=== PATIENT | female | born 1965 | race Caucasian/White ===

== ENCOUNTER 2019-10-15 11:04 | Inpatient (IN) | payer SELFPAY ==
[2019-10-15] VITALS (10 sets, daily range): BP systolic 89–117; BP diastolic 40–68
[~2019-10-15] VITALS: Ht 167.6 cm; Wt 74.5 kg
[~2019-10-15 11:04] MED LIST: calcium chloride 100 MG/1 ML inj IV ONE; dextrose 50%-water 50ml dispensing syringe IV ONE; etomidate 2mg/ml inj. ONE; rocuronium 10mg/ml inj IV ONE; sod chloride 0.9% 10ml flush syringe IV ONE; sodium bicarbonate (8.4%) 1 mEq/ml syringe ONE
[2019-10-15] MEDS ORDERED: succinylcholine 20mg/ml inj IV ONE (11:08)
[2019-10-15] MEDS ORDERED: insulin regular, human 10 units/0.1 ml syringe IV ONE (11:10)
--- NOTE | 2019-10-15 11:10 | NUR ---
Poison control was called by RN. Posion control recommended activated charcoal but didn't recommend lavage. For Potassium OVD EKG EVERY 2 HRS, POT. LEVEL, AND VS MONITORING WAS SUGGESTED. Rec. For morphine OVD VS MONITORING, NARCAN EVERY 2MIN(UP TO 20 MG), LABS, EKG was suggested. Labs recomended were: blood alcohol level, potassium, tylenol, asprin, urine drug screen, Liver function.
[2019-10-15] MEDS ORDERED: insulin regular, human U-100 3ml vial - multi-dose IV ONE ×2 (11:17→11:20)
[2019-10-15] MEDS ORDERED: charcoal, activated 50 GM/240 ML bottle PO ONE (11:25)
[2019-10-15] MEDS ORDERED: sodium bicarbonate (8.4%) 1 mEq/ml syringe IV ONE (11:30)
[2019-10-15] MEDS ORDERED: dextrose 50%-water 50ml dispensing syringe IV ONE (11:30)
[2019-10-15] MEDS ORDERED: calcium chloride 100 MG/1 ML inj IV ONE (11:30)
[2019-10-15] MEDS ORDERED: propofol 1000mg/100ml bottle 100 ML IV PRN (11:38)
[2019-10-15] MEDS ORDERED: propofol 1000mg/100ml bottle 100 ML IV ONE (11:39)
[2019-10-15] MEDS ORDERED: midazolam 2 mg/2 ml injection IV ONE (11:40)
[2019-10-15] MEDS ORDERED: LIDOcaine 2% 10ml TOPICAL JELLY (Urojet) TP ONE (11:40)
[2019-10-15] MEDS ORDERED: potassium Cl 20 mEq SR tablet PO PRN ×2 (11:40)
[2019-10-15] MEDS ORDERED: potassium CL 10mEq/100ml bag 100 ML IV PRN ×2 (11:40)
[2019-10-15] MEDS ORDERED: fentaNYL/PF 50MCG/1 ML 2ML syringe IV PRN (11:40)
[2019-10-15] MEDS ORDERED: ipratropium/albuterol 3ml nebule NEB PRN (11:40)
[2019-10-15] MEDS ORDERED: ondansetron/PF 4mg/2ml inj IV PRN (11:40)
[2019-10-15] MEDS ORDERED: acetaminophen 325mg tablet PO PRN ×2 (11:40)
[2019-10-15 11:44] LABS: BASOPHILS % (AUTO) 0.4 % (0-1); EOSINOPHILS % (AUTO) 0.2 % (0-6); HEMATOCRIT 41.7 % (35.0-45.0); HEMOGLOBIN 14.3 g/dl (12.0-16.0); LYMPHOCYTES # (AUTO) 1.2 X10'3 (1.1-4.8); LYMPHOCYTES % (AUTO) 23.1 % (21-51); MEAN CORPUSCULAR HEMOGLOBIN 31.9 PG (27.0-31.0); MEAN CORPUSCULAR HGB CONC 34.2 g/dL (33.0-36.5); MEAN CORPUSCULAR VOLUME 93.3 FL (78-98); MEAN PLATELET VOLUME 7.5 FL (7.4-10.4); MONOCYTES # (AUTO) 0.5 X10'3 (0-0.9); MONOCYTES % (AUTO) 9.3 % (2-12); NEUTROPHILS # (AUTO) 3.4 X10'3 (1.8-7.7); PLATELET COUNT 281 X10'3 (140-440); RED BLOOD COUNT 4.47 X10'6 (4.20-5.60); RED CELL DISTRIBUTION WIDTH 13.5 % (11.5-14.5); WHITE BLOOD COUNT 5.1 X10'3 (4.5-11.0)
[2019-10-15 11:50] LABS: ABG BASE EXCESS 2.7 mmol/L (-2.0-3.0); ABG HCO3 25.6 mmol/L (22.0-26.0); ABG OXYGEN SATURATION 99.2 % (95-98); ABG PH (T) 7.494 (7.350-7.450); ABG PO2 (T) 293.4 mmHg (83-108); ALLEN'S TEST POSITIVE; FCOHb 0.3 % (0.5-1.5); FMetHb 0.2 % (0.3-1.12); FO2Hb 98.7 % (94-100); PEEP 5 cm H2O; RESPIRATORY RATE 18 b/min; TIDAL VOLUME 400 mL; TOTAL HEMOGLOBIN 13.5 G/dl (12.0-16.0)
[2019-10-15 11:59] LABS: ALANINE AMINOTRANSFERASE 15 U/L (12-78); ALBUMIN/GLOBULIN RATIO 1.3 (1.1-1.5); ALKALINE PHOSPHATASE 55 IU/L (46-116); ANION GAP 14 (8-16); ASPARTATE AMINO TRANSFERASE 17 U/L (10-37); BILIRUBIN,TOTAL 0.4 MG/DL (0.1-1.0); BLOOD UREA NITROGEN 10 MG/DL (7-18); BUN/CREATININE RATIO 11.4 (6.6-38.0); CHLORIDE 102 MMOL/L (99-107); CREATININE 0.88 MG/DL (0.40-0.90); GLUCOSE 154 MG/DL (70-104); POTASSIUM 4.2 MMOL/L (3.5-5.1); SODIUM 139 MMOL/L (135-145); TOTAL CARBON DIOXIDE 22.9 MMOL/L (24-32); eGFR 67 ML/MIN
[2019-10-15 12:07] LABS: ACETAMINOPHEN 57.3 UG/ML (10-30)
[2019-10-15 12:28] LABS: CLARITY,URINE CLEAR (Clear); COLOR,URINE YELLOW (Yellow); GLUCOSE, URINE 250 mg/dl (Neg); KETONES,URINE NEGATIVE (Neg); LEUKOCYTE ESTERASE ,URINE NEGATIVE (Neg); NITRITES, URINE NEGATIVE (Neg); OCCULT BLOOD,URINE NEGATIVE (Neg); PH,URINE 7.5 (4.8-8.0); PROTEIN,URINE NEGATIVE (Neg); UROBILINOGEN,URINE 0.2 E.U/dL (0.2-1.0)
[2019-10-15 12:29] LABS: URINE HCG NEGATIVE (NEG)
[2019-10-15 12:30] LABS: UA COLLECTION TYPE FOLEY CATH
[2019-10-15] MEDS: normal saline 1000ml 1,000 ML IV SCH ×2 (12:32→20:08)
[2019-10-15 12:41] LABS: URINE AMPHETAMINE SCREEN NEGATIVE (Neg); URINE BARBITUATE SCREEN NEGATIVE (Neg); URINE BENZODIAZEPINES SCREEN NEGATIVE (Neg); URINE CANNABINOID SCREEN NEGATIVE (Neg); URINE COCAINE SCREEN NEGATIVE (Neg); URINE METHADONE SCREEN NEGATIVE (Neg); URINE OPIATE SCREEN POSITIVE (Neg); URINE PHENCYCLIDINE SCREEN NEGATIVE (Neg)
[2019-10-15] MEDS ORDERED: ACETYLCYSTEINE IV ONE ×3 (13:30→18:30)
[2019-10-15] MEDS ORDERED: DEXTROSE 5% IV ONE ×3 (13:30→18:30)
[2019-10-15] MEDS ORDERED: WATER IV ONE ×3 (13:30→18:30)
[2019-10-15] MEDS ORDERED: midazolam 2 mg/2 ml injection ONE (13:35)
[2019-10-15] MEDS: midazolam 100mg in NS 100ml 100 ML IV PRN ×2 (14:24→22:47)
[2019-10-15] MEDS: FENTANYL-0.9 % NACL/PF 100 ML IV PRN (14:25)
[2019-10-15 15:10] LABS: ACETAMINOPHEN 24.2 UG/ML (10-30)
[2019-10-15] MEDS: ipratropium/albuterol 3ml nebule NEB SCH ×3 (15:14→23:09)
--- NOTE | 2019-10-15 17:42 | NUR ---
Called poison control, spoke with Davon Boss. Per POison control to check Acet level, AST and ALT once the third dose of Acetadote is almost finished. Order noted.
--- NOTE | 2019-10-15 18:30 | NUR ---
Problems reprioritized. Patient report given Joya, questions answered & plan of care reviewed with .
--- NOTE | 2019-10-15 18:37 | NUR ---
Patient in room CICU 2016. I have received report from ROXANA Ortiz and had the opportunity to ask questions and assume patient care. Patient currently intubated and sedated with Versed and fentanyl for pain control per MD orders. FiO2 40%. Patient with the second bag of Aceadote infusing per MD order. Patient is sinus rhythm on the monitor. Lemons catheter in place. Lung sounds clear. Pupils 2mm ABIMAEL. Will continue to monitor.
--- NOTE | 2019-10-15 19:40 | NUR ---
Patients son Viraj called for information re: his mother. Explained to him that he is not listed on the contact list and due to HIPPA we are unable to discuss information. Requested he call [facility] patients for further information.
[2019-10-15 19:45] LABS: BASOPHILS % (AUTO) 0.4 % (0-1); EOSINOPHILS % (AUTO) 0 % (0-6); HEMATOCRIT 40.2 % (35.0-45.0); HEMOGLOBIN 13.6 g/dl (12.0-16.0); LYMPHOCYTES # (AUTO) 0.8 X10'3 (1.1-4.8); LYMPHOCYTES % (AUTO) 8.8 % (21-51); MEAN CORPUSCULAR HEMOGLOBIN 31.4 PG (27.0-31.0); MEAN CORPUSCULAR HGB CONC 33.7 g/dL (33.0-36.5); MEAN PLATELET VOLUME 7.3 FL (7.4-10.4); MONOCYTES # (AUTO) 0.6 X10'3 (0-0.9); MONOCYTES % (AUTO) 6.6 % (2-12); NEUTROPHILS # (AUTO) 7.6 X10'3 (1.8-7.7); NEUTROPHILS % (AUTO) 84.2 % (42-75); PLATELET COUNT 219 X10'3 (140-440); RED BLOOD COUNT 4.32 X10'6 (4.20-5.60); RED CELL DISTRIBUTION WIDTH 13.6 % (11.5-14.5)
[2019-10-15 19:54] LABS: PARTIAL THROMBOPLASTIN TIME 26 SECONDS (22-32)
[2019-10-15 19:55] LABS: ALANINE AMINOTRANSFERASE 16 U/L (12-78); ALBUMIN 3.3 G/DL (3.4-5.0); ALBUMIN/GLOBULIN RATIO 1.1 (1.1-1.5); ALKALINE PHOSPHATASE 43 IU/L (46-116); ANION GAP 9 (8-16); ASPARTATE AMINO TRANSFERASE 16 U/L (10-37); BILIRUBIN,TOTAL 0.4 MG/DL (0.1-1.0); BLOOD UREA NITROGEN 8 MG/DL (7-18); BUN/CREATININE RATIO 9.6 (6.6-38.0); CALCIUM 9.1 MG/DL (8.5-10.1); CHLORIDE 107 MMOL/L (99-107); CREATININE 0.83 MG/DL (0.40-0.90); GLUCOSE 208 MG/DL (70-104); POTASSIUM 4.3 MMOL/L (3.5-5.1); SODIUM 141 MMOL/L (135-145); TOTAL CARBON DIOXIDE 25.2 MMOL/L (24-32); TOTAL PROTEIN 6.2 G/DL (6.4-8.2); eGFR 72 ML/MIN
[2019-10-15 19:59] LABS: MAGNESIUM 1.8 MG/DL (1.5-2.4); PHOSPHORUS 1.5 MG/DL (2.3-4.5); TROPONIN I < 0.04 NG/ML (0.0-0.05)
[2019-10-15] MEDS: docusate sod 100mg capsule PO SCH (20:00)
--- NOTE | 2019-10-15 20:30 | NUR ---
Patient awoke during repositioning. Moves all extremities. Not following commands, attempting to sit up in bed and kick with her legs. Sedation administered per protocol. Patient restrained with bilateral upper extremity soft splints. Will continue to monitor.
--- NOTE | 2019-10-15 20:43 | NUR ---
Discussed patient with Adalgisa Gaitan NP. Addressed OG tube not being attached to suction. Patient currently has Activated charcoal dwelling, administered 8 hours ago in ER. Poison Control advising against gastric lavage. Per Adalgisa Gaitan NP okay to start low intermittent suction. If activated charcoal is suctioned out stop suctioning. Updated him on patients labs and EKG.
[2019-10-15] MEDS: famotidine/PF 10 mg/ml inj IV SCH (22:12)
[2019-10-15] MEDS: heparin, porcine 5000 units/ml vial SQ SCH (22:14)
[2019-10-16] VITALS (23 sets, daily range): BP systolic 78–160; BP diastolic 35–90
[2019-10-16] MEDS: ipratropium/albuterol 3ml nebule NEB SCH ×4 (02:42→21:15)
[2019-10-16] MEDS: FENTANYL-0.9 % NACL/PF 100 ML IV PRN (02:50)
[2019-10-16] MEDS: normal saline 1000ml 1,000 ML IV SCH ×3 (03:38→19:37)
[2019-10-16 03:51] LABS: ABG HCO3 19.4 mmol/L (22.0-26.0); ABG OXYGEN SATURATION 99.1 % (95-98); ABG PCO2 (T) 32.7 mmHg (35.0-45.0); ABG PH (T) 7.387 (7.350-7.450); ABG PO2 (T) 179.3 mmHg (83-108); ALLEN'S TEST POSITIVE; FCOHb 0.3 % (0.5-1.5); FMetHb 0.2 % (0.3-1.12); FO2Hb 98.6 % (94-100); PEEP 5 cm H2O; RESPIRATORY RATE 20 b/min; TIDAL VOLUME 350 mL
[2019-10-16 05:24] LABS: BASOPHILS % (AUTO) 0.3 % (0-1); EOSINOPHILS % (AUTO) 0.1 % (0-6); HEMATOCRIT 35.6 % (35.0-45.0); HEMOGLOBIN 12.1 g/dl (12.0-16.0); LYMPHOCYTES # (AUTO) 1.3 X10'3 (1.1-4.8); MEAN CORPUSCULAR HEMOGLOBIN 31.9 PG (27.0-31.0); MEAN CORPUSCULAR HGB CONC 34.1 g/dL (33.0-36.5); MEAN CORPUSCULAR VOLUME 93.6 FL (78-98); MEAN PLATELET VOLUME 7.5 FL (7.4-10.4); MONOCYTES # (AUTO) 0.6 X10'3 (0-0.9); MONOCYTES % (AUTO) 8.2 % (2-12); NEUTROPHILS # (AUTO) 5.5 X10'3 (1.8-7.7); NEUTROPHILS % (AUTO) 74.4 % (42-75); PLATELET COUNT 196 X10'3 (140-440); RED BLOOD COUNT 3.81 X10'6 (4.20-5.60); RED CELL DISTRIBUTION WIDTH 13.6 % (11.5-14.5); WHITE BLOOD COUNT 7.4 X10'3 (4.5-11.0)
[2019-10-16 05:36] LABS: ALANINE AMINOTRANSFERASE 7 U/L (12-78); ALBUMIN 2.8 G/DL (3.4-5.0); ALKALINE PHOSPHATASE 40 IU/L (46-116); ANION GAP 11 (8-16); ASPARTATE AMINO TRANSFERASE 12 U/L (10-37); BILIRUBIN,TOTAL 0.4 MG/DL (0.1-1.0); BLOOD UREA NITROGEN 7 MG/DL (7-18); BUN/CREATININE RATIO 10.6 (6.6-38.0); CALCIUM 8.7 MG/DL (8.5-10.1); CHLORIDE 109 MMOL/L (99-107); CREATININE 0.66 MG/DL (0.40-0.90); GLUCOSE 115 MG/DL (70-104); MAGNESIUM 1.5 MG/DL (1.5-2.4); POTASSIUM 3.8 MMOL/L (3.5-5.1); SODIUM 142 MMOL/L (135-145); TOTAL CARBON DIOXIDE 22.5 MMOL/L (24-32); TOTAL PROTEIN 5.5 G/DL (6.4-8.2); TRIGLYCERIDES 121 MG/DL (20-135); eGFR > 90 ML/MIN
--- NOTE | 2019-10-16 05:55 | NUR ---
Patients called to check up on his . History regarding current events; she was seen by Dr. Lord via telemedicine. She was having increased anxiety and depression regarding COVID nursing home at home status. She was prescribed Lopressor 25mg 1 tab a day in the morning. Trazodone 50 mg one tab HS. on 10/06. He relates that she has a history of Bilateral Breast Cancer with reconstruction 10 + years ago. Patient had Chemotherapy and developed "Chemo Brain". Per her she is "forgetful" will "forget where she is at times" he relates that she will be in the grocery store and forget where she is. 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 Patient also has a history of a hip replacement and "back surgeries".
[2019-10-16] MEDS: midazolam 100mg in NS 100ml 100 ML IV PRN (06:16)
--- NOTE | 2019-10-16 06:30 | NUR ---
Problems reprioritized. Patient report given, questions answered & plan of care reviewed with ROXANA Maurer.
--- NOTE | 2019-10-16 06:41 | NUR ---
[facility] I have received report from Joya SCHMIDT and had the opportunity to ask questions and assume patient care. Addendum: 10/16/19 at 0642 by Libertad Deleon RN Amended: Links added.
[2019-10-16] MEDS: heparin, porcine 5000 units/ml vial SQ SCH ×2 (07:15→20:00)
[2019-10-16] MEDS: famotidine/PF 10 mg/ml inj IV SCH (07:15)
[2019-10-16] MEDS: docusate sod 100mg capsule PO SCH ×2 (07:15→20:00)
--- NOTE | 2019-10-16 08:52 | NUR ---
Poison control called for an update. Labs and VS reviewed with them. Recommended to recheck INR, AST, ALT and INR one hour prior to the Acetadote infusion completion. Pt. has attempted to sit up and throw legs over bed several times. Needs constant reassurance. just called for an update.
[2019-10-16] MEDS ORDERED: racepinephrine 11.25mg/0.5ml nebule NEB PRN (10:35)
[2019-10-16] MEDS ORDERED: ipratropium/albuterol 3ml nebule NEB PRN (10:35)
--- NOTE | 2019-10-16 10:41 | NUR ---
Pt. passed weaning parameters. Orders received to extubate pt. RT notified. Charge nurse notified.
--- NOTE | 2019-10-16 11:12 | NUR ---
Nino Consult: Nino 12; No edema and skin intact. Pt extubated s/p intentional OD on 1798 hold per . Advanced to regular diet. Will monitor for PO diet tolerance and additional protein needs. Addendum: 10/16/19 at [address] Amended: Links added.
--- NOTE | 2019-10-16 12:47 | NUR ---
Case management assisting with getting pt. evaluated by [facility]. Spoke with Edna at the [facility] office who confirmed receipt of needed documents inlcuding a statement from Dr. Hoff that pt. is medically clear for discharge to mental health.
[2019-10-16 13:22] LABS: ACETAMINOPHEN < 2.0 UG/ML (10-30); ALANINE AMINOTRANSFERASE 17 U/L (12-78); ASPARTATE AMINO TRANSFERASE 17 U/L (10-37)
[2019-10-16] MEDS: mineral oil/petrolatum ophthal oint EACHEYE SCH ×2 (14:00→20:00)
--- NOTE | 2019-10-16 14:15 | NUR ---
Pt. was constantly asking to have perez catheter removed. Order was for "protocol" and was dc'd per protocol order as pt. is able to use bedpan. Pt. needs frequent reassurance and reorientation. Frequently asks if she could go home today. Awaiting response from mental health re. assessment/placement.
--- NOTE | 2019-10-16 14:46 | NUR ---
Poison control called for update. Labs, vitals and pt.'s overall condition given to them. Case is now closed out per poison control.
--- NOTE | 2019-10-16 14:56 | NUR ---
Pt. very impulsive. Attempts to sit up quickly disregarding lines, cords. Up to BSC with minimal assistance to void. Unable to void on bedpan.
--- NOTE | 2019-10-16 15:16 | NUR ---
Kin from mental health here talking with pt.
--- NOTE | 2019-10-16 18:30 | NUR ---
Patient in room CICU 2016. I have received report from ROXANA Maurer and had the opportunity to ask questions and assume patient care. Patient is awake and alert, sitter at bedside.
[2019-10-16] MEDS ORDERED: TRAZ-251 PO (19:45)
[2019-10-16] MEDS ORDERED: METO-467 PO (19:48)
[2019-10-16] MEDS: famotidine 20mg tablet PO SCH (20:00)
[2019-10-16] MEDS ORDERED: temazepam 15mg capsule PO ONE (21:00)
[2019-10-17] VITALS (11 sets, daily range): BP systolic 132–182; BP diastolic 67–100
[2019-10-17] MEDS: mineral oil/petrolatum ophthal oint EACHEYE SCH ×2 (02:00→07:15)
[2019-10-17] MEDS: ipratropium/albuterol 3ml nebule NEB SCH (02:49)
[2019-10-17] MEDS: normal saline 1000ml 1,000 ML IV SCH (03:02)
--- NOTE | 2019-10-17 04:57 | NUR ---
[id number]: Patient anxious, restless. Patient relates that she is anxious about having to "being sent to another town for treatment." She verbalizes that she would like to stay in [place] if at all possible. She is concerned that "if she goes she wont be able to come back." Verbalizes " I cant believe that I did that to my family." She recounts that for the last 4 weeks she has been unable to sleep, walks around her house at night. She has been concerned with "getting sick with the sung virus or infecting others." She relates that she was previously on medications for depression and stopped taking all her medications about a month ago. Patient states she wants to get better. Patient denies any current suicidal plan at this time. Sitter at bedside will continue to monitor.
[2019-10-17 05:50] LABS: ALANINE AMINOTRANSFERASE 19 U/L (12-78); ALBUMIN 3.4 G/DL (3.4-5.0); ALBUMIN/GLOBULIN RATIO 1.1 (1.1-1.5); ALKALINE PHOSPHATASE 55 IU/L (46-116); ANION GAP 10 (8-16); ASPARTATE AMINO TRANSFERASE 19 U/L (10-37); BILIRUBIN,TOTAL 0.5 MG/DL (0.1-1.0); BLOOD UREA NITROGEN 4 MG/DL (7-18); BUN/CREATININE RATIO 6.3 (6.6-38.0); CHLORIDE 109 MMOL/L (99-107); CREATININE 0.63 MG/DL (0.40-0.90); GLUCOSE 94 MG/DL (70-104); MAGNESIUM 1.7 MG/DL (1.5-2.4); PHOSPHORUS 3.8 MG/DL (2.3-4.5); POTASSIUM 3.5 MMOL/L (3.5-5.1); SODIUM 144 MMOL/L (135-145); TOTAL PROTEIN 6.4 G/DL (6.4-8.2); eGFR > 90 ML/MIN
--- NOTE | 2019-10-17 06:00 | NUR ---
Patient requests that INFORMATION ONLY TO HER . Her children can call her for updates.
[2019-10-17 06:03] LABS: BASOPHILS % (AUTO) 0.5 % (0-1); EOSINOPHILS % (AUTO) 0.7 % (0-6); HEMATOCRIT 38.7 % (35.0-45.0); HEMOGLOBIN 13.2 g/dl (12.0-16.0); LYMPHOCYTES # (AUTO) 1.2 X10'3 (1.1-4.8); LYMPHOCYTES % (AUTO) 21.6 % (21-51); MEAN CORPUSCULAR HEMOGLOBIN 32.1 PG (27.0-31.0); MEAN CORPUSCULAR HGB CONC 34.2 g/dL (33.0-36.5); MEAN PLATELET VOLUME 7.7 FL (7.4-10.4); MONOCYTES # (AUTO) 0.7 X10'3 (0-0.9); MONOCYTES % (AUTO) 12.8 % (2-12); NEUTROPHILS # (AUTO) 3.5 X10'3 (1.8-7.7); NEUTROPHILS % (AUTO) 64.4 % (42-75); PLATELET COUNT 251 X10'3 (140-440); RED BLOOD COUNT 4.12 X10'6 (4.20-5.60); RED CELL DISTRIBUTION WIDTH 13.8 % (11.5-14.5); WHITE BLOOD COUNT 5.5 X10'3 (4.5-11.0)
--- NOTE | 2019-10-17 06:11 | NUR ---
Problems reprioritized. Patient report given, questions answered & plan of care reviewed with ROXANA Maurer.
--- NOTE | 2019-10-17 06:20 | NUR ---
[facility]. I have received report from Joya SCHMIDT and had the opportunity to ask questions and assume patient care. Addendum: 10/17/19 at 0621 by Libertad Deleon RN Amended: Links added.
[2019-10-17] MEDS: docusate sod 100mg capsule PO SCH (07:21)
[2019-10-17] MEDS: heparin, porcine 5000 units/ml vial SQ SCH (07:22)
[2019-10-17] MEDS: famotidine 20mg tablet PO SCH (07:22)
--- NOTE | 2019-10-17 07:26 | NUR ---
Patient refused SVN tx @ this time. No Shortness of breath noted. PT DOES NOT USE ANY RESPIRATORY MEDS AT HOME
--- NOTE | 2019-10-17 08:39 | NUR ---
Dr. Maynard notified of pt's increased BP and heart rate. RN had Dr. Maynard address med. rec. Talking with pt. now.
[2019-10-17] MEDS ORDERED: LORazepam 2 mg/ml vial IV ONE (08:40)
--- NOTE | 2019-10-17 08:51 | NUR ---
HR in the mid 140s while talking to Dr. Maynard. Order received for 1mg Ativan. Ativan given. Sitter remains at bedside.
[2019-10-17] MEDS ORDERED: metoprolol tartrate 25mg tablet PO SCH (09:25)
--- NOTE | 2019-10-17 09:26 | NUR ---
Spoke with [facility] case management ans social media marketer re. plan for pt. Per [facility], pt. can be discharged and then admitted to either [facility] or [facility] today. Dr. Maynard and charge nurse aware of plan.
--- NOTE | 2019-10-17 10:57 | NUR ---
Discharge order received. Discharge packet printed. Pt. dressed in own clothes. Personal belongings packed up. Awaiting call back from [facility].
--- NOTE | 2019-10-17 11:40 | NUR ---
Pt. taken to [facility] via w/c with all belongings.
[2019-10-17] MEDS ORDERED: traZODone 50mg tablet PO SCH (21:00)
[2019-10-18] MEDS ORDERED: metoprolol tartrate 25mg tablet PO SCH (08:00)
== END 2019-10-17 11:30 | disposition short-term general hospital (02) | DRG 917 ==
LOC: ER 11:04 → ED HOLD 11:37 → EDBEDREQ 12:02 → CICU 2S 13:20
PROVIDERS: ADMIT Internal Medicine Critical Care Medicine; ATTEND Internal Medicine Critical Care Medicine
PROC: 5A1935Z Respiratory Ventilation, Less than 24 Consecutive Hours (ICD-10-PCS; principal; 2019-10-15)
PROC: 0BH17EZ Insertion of Endotracheal Airway into Trachea, Via Natural or Artificial Opening (ICD-10-PCS; 2019-10-15)
PROC: 0B938ZZ Drainage of Right Main Bronchus, Via Natural or Artificial Opening Endoscopic (ICD-10-PCS; 2019-10-15)
DX: T40.2X2A Poisoning by other opioids, intentional self-harm, initial encounter (principal); J96.00 Acute respiratory failure, unspecified whether with hypoxia or hypercapnia; T17.590A Other foreign object in bronchus causing asphyxiation, initial encounter; E87.5 Hyperkalemia; F41.8 Other specified anxiety disorders; T50.3X2A Poisoning by electrolytic, caloric and water-balance agents, intentional self-harm, initial encounter; Y92.89 Other specified places as the place of occurrence of the external cause
CPT/HCPCS: 31645; 36415; 36600; 71045; 80053; 80305; 80329; 81003; 81025; 82803; 82948; 83735; 84100; 84132; 84443; 84450; 84460; 84478; 84484; 85018; 85025; 85610; 85730; 87070; 87081; 93005; 94002; 94003; 94640; 94760; 96374; 97116; 97161; 97530; 99291; G0378; J0132; J0330; J1644; J1815; J2060; J2250; J2704; J3010; J3490; J7030; J7060; J7070

== ENCOUNTER 2019-10-17 11:54 | Emergency (ER) | payer SELFPAY ==
[~2019-10-17] VITALS: Ht 162.6 cm; Wt 63.6 kg
[~2019-10-17 11:54] MED LIST changes: +METO-467 PO; +TRAZ-251 PO; -calcium chloride 100 MG/1 ML inj IV ONE; -dextrose 50%-water 50ml dispensing syringe IV ONE; -etomidate 2mg/ml inj. ONE; -rocuronium 10mg/ml inj IV ONE; -sod chloride 0.9% 10ml flush syringe IV ONE; -sodium bicarbonate (8.4%) 1 mEq/ml syringe ONE
--- NOTE | 2019-10-17 11:54 | NUR ---
Patient arrived ambulating self. All items inventoried and placed in storage. Patient received phone numbers out of personal phone and this was placed in storage as well. Patient is pleasant and cooperative with care. She is tearful at times and states "I made a big mistake". She is a non-smoker. She denies SI, HI, A/VH. She reprots that she has had no previous attempts. She requests to have her bible and lip balm both are with her at bedside. She is a non-smoker. - Aurelio- phone: [phone].
[2019-10-17 12:20] VITALS: BP 145/78
--- NOTE | 2019-10-17 13:50 | NUR ---
Patient is resting in bed peacefully at this time. No distress observed.
[2019-10-17] MEDS ORDERED: LORazepam 1 MG tablet PO PRN (14:35)
--- NOTE | 2019-10-17 15:06 | NUR ---
Patient is discharged from the unit accompanied by [facility] belly dump driver and security. Ambulating self. All items inventoried and in patient's possession at time of discharge. Patient is a non-smoker. Denies SI, HI, A/VH. She is willing and ready to receive help and is going to [facility] for stabilization and medication management.
== END 2019-10-17 15:17 | disposition home or self-care (01) ==
LOC: ER 11:54
DX: R45.851 Suicidal ideations (principal); Z88.8 Allergy status to other drugs, medicaments and biological substances; Z79.899 Other long term (current) drug therapy
CPT/HCPCS: 99285

== ENCOUNTER 2024-04-15 16:22 | Outpatient (CLI) | payer MEDICARE, OTHER | END 2024-04-15 23:59 | disposition home or self-care (01) | LOC: MRI02 16:22 | PROVIDERS: ATTEND Orthopaedic Surgery | DX: M19.012 Primary osteoarthritis, left shoulder (principal); M89.312 Hypertrophy of bone, left shoulder; M25.812 Other specified joint disorders, left shoulder; M25.512 Pain in left shoulder | CPT/HCPCS: 73221 ==